=== PATIENT | female | born 1950 | race Caucasian/White ===

== ENCOUNTER → 2016-06-12 | Outpatient (CLI) | payer BC, MEDICARE ==
--- NOTE | 2016-06-12 11:03 | MM ---
Reason for exam: screening (asymptomatic). Last mammogram was performed 1 year and 2 months ago. History: Patient is postmenopausal and is nulliparous. Family history of breast cancer in mother at age 60. Benign excisional biopsy of the right breast, 1981. Took hormonal contraceptives beginning at age 21. Physical Findings: A clinical breast exam by your physician is recommended on an annual basis and results should be correlated with mammographic findings. MG Screening Mammo w CAD Bilateral CC and MLO view(s) were taken. Prior study comparison: April 10, 2015, bilateral MG 3d screening mammo w/cad. February 09, 2014, bilateral MG screening mammo w CAD. January 06, 2013, bilateral digital screening mammo w/CAD. There are scattered fibroglandular densities. Finding: There are typically benign round calcifications in both breasts, greater in the right breast. There is no discrete abnormality. ASSESSMENT: Benign, BI-RAD 2 RECOMMENDATION: Routine screening mammogram of both breasts in 1 year.
== END | disposition home or self-care (01) ==
LOC: RADMAMWWP 07:05
PROVIDERS: ATTEND Family Medicine
DX: Z12.31 Encounter for screening mammogram for malignant neoplasm of breast (principal)

== ENCOUNTER → 2018-02-25 | Outpatient (CLI) | payer MEDICARE, BC ==
--- NOTE | 2018-02-25 11:55 | MM ---
Reason for exam: additional evaluation requested from prior study. Last mammogram was performed 1 year and 8 months ago. History: Patient is postmenopausal and is nulliparous. Family history of breast cancer in mother at age 60. Benign excisional biopsy of the right breast, 1981. Took hormonal contraceptives beginning at age 21. Physical Findings: Nurse did not find any significant physical abnormalities on exam. MG 3D Diag Mammo W/Cad PARUL Bilateral CC and MLO view(s) were taken. Prior study comparison: June 12, 2016, bilateral MG screening mammo w CAD. April 10, 2015, bilateral MG 3d screening mammo w/cad. There are scattered fibroglandular densities. Dense tissues focally behind the right nipple, unchanged. No significant new findings when compared with previous films. These results were verbally communicated with the patient and result sheet given to the patient on 02/25/18. ASSESSMENT: Negative, BI-RAD 1 RECOMMENDATION: Routine screening mammogram of both breasts in 1 year.
== END | disposition home or self-care (01) ==
LOC: RADMAMWWP 08:05
PROVIDERS: ATTEND Family Medicine
DX: R92.2 Inconclusive mammogram (principal)
CPT/HCPCS: 77066; G0279; 77062

== ENCOUNTER → 2019-04-14 | Outpatient (CLI) | payer BC, MEDICARE ==
--- NOTE | 2019-04-14 10:01 | US ---
EXAMINATION TYPE: US transvaginal DATE OF EXAM: 04/14/2019 COMPARISON: NONE CLINICAL HISTORY: R10.2 Pelvic Pain. Pain total hysterectomy. TECHNIQUE: Transvaginal EXAM MEASUREMENTS: Uterus: Surgically absent Endometrial Stripe: Surgically absent Right Ovary: Surgically absent Left Ovary: Surgically absent 1. Uterus: Surgically absent 2. Endometrium: Surgically absent 3. Right Ovary: Surgically absent 4. Left Ovary: Surgically absent 5. Bilateral Adnexa: wnl 6. Posterior cul-de-sac: wnl No evident mass, no free fluid evident. IMPRESSION: Postop changes, no discrete abnormality.
== END | disposition home or self-care (01) ==
LOC: RADUSWWP 07:20
PROVIDERS: ATTEND Family Medicine
DX: R10.2 Pelvic and perineal pain (principal); Z98.890 Other specified postprocedural states
CPT/HCPCS: 76830; 76857

== ENCOUNTER → 2019-04-21 | Day surgery (SDC) | payer BC, MEDICARE ==
[2019-04-20 10:26] VITALS: BMI 23.8
[~2019-04-21] MED LIST: GLUCAGON 1 MG/ML VIAL ONE; LACTATED RINGERS 1,000 ML IV SCH; PROPOFOL 10 MG/ML 20 ML VIAL IV ONE
[2019-04-21 07:16] VITALS: TEMP 97.2
--- NOTE | 2019-04-21 07:55 | P.GSHP ---
History of Present Illness H&P Date: 04/21/19 Chief Complaint: Screening colonoscopy This a 68-year-old female who presents today for screening colonoscopy. Patient denies any significant GI complaints. Past Medical History Past Medical History: Osteoarthritis (OA) Additional Past Medical History / Comment(s): hx. colon polyps, hx. elevated liver enzymes History of Any Multi-Drug Resistant Organisms: None Reported Past Surgical History: Hysterectomy Additional Past Surgical History / Comment(s): pain procedures, colonoscopy Past Anesthesia/Blood Transfusion Reactions: No Reported Reaction Smoking Status: Former smoker Medications and Allergies Home Medications Medication Instructions Recorded Confirmed Type Calcium Carbonate [Calcium] 600 mg PO DAILY 04/20/19 04/21/19 History Cholecalciferol [Vitamin D3 (25 1,000 unit PO DAILY 04/20/19 04/21/19 History Mcg = 1000 Iu)] Cinnamon Bark [Cinnamon] 500 mg PO DAILY 04/20/19 04/21/19 History Lactobacillus Acidophilus 1 each PO DAILY 04/20/19 04/21/19 History [Acidophilus] Meloxicam [Mobic] 7.5 mg PO DAILY 04/20/19 04/21/19 History Allergies Allergy/AdvReac Type Severity Reaction Status Date / Time No Known Allergies Allergy Verified 04/20/19 09:51 Surgical - Exam Vital Signs Temp Pulse Resp BP Pulse Ox 97.2 F L 64 16 127/75 98 04/21/19 07:14 04/21/19 07:14 04/21/19 07:14 04/21/19 07:14 04/21/19 07:14 - General well developed, well nourished, no distress - Eyes PERRL - ENT normal pinna - Neck no masses - Respiratory normal expansion - Cardiovascular Rhythm: regular - Abdomen Abdomen: soft, non tender Assessment and Plan Assessment: We'll perform screening colonoscopy.
[2019-04-21 08:14] VITALS: RESP 17
[2019-04-21 08:22] VITALS: BP 110/65; PULSE 57
--- NOTE | 2019-04-21 10:27 | P.OP ---
Date of Procedure: 04/21/19 Preoperative Diagnosis: Screening colonoscopy Postoperative Diagnosis: Diverticulosis Procedure(s) Performed: Colonoscopy Anesthesia: MAC Surgeon: Martell Gerardo Pathology: none sent Condition: stable Disposition: PACU Description of Procedure: The patient's placed on the endoscopy table lateral position. He received IV sedation. Digital rectal exam was performed which revealed a few external hemorrhage. The flexible coloscopy was then placed patient anus passed throughout the entire colon. The ileocecal valve was utilized. The cecum, ascending and transverse colon appeared normal. The descending sigmoid colon there is mild diverticular changes. Scope was then brought back the rectum this appeared normal. Scope was withdrawn for patient.
== END ==
LOC: ORWHC2ENDO 06:31
PROVIDERS: ATTEND Surgery
DX: Z12.11 Encounter for screening for malignant neoplasm of colon (principal); K57.30 Diverticulosis of large intestine without perforation or abscess without bleeding; Z86.010 Personal history of colon polyps; M19.90 Unspecified osteoarthritis, unspecified site; Z90.710 Acquired absence of both cervix and uterus; Z87.891 Personal history of nicotine dependence; Z79.1 Long term (current) use of non-steroidal anti-inflammatories (NSAID); Z79.899 Other long term (current) drug therapy
CPT/HCPCS: J1610; J2704; G0105

== ENCOUNTER → 2019-05-10 | Outpatient (CLI) | payer MEDICARE, BC ==
--- NOTE | 2019-05-10 16:23 | BD ---
EXAMINATION TYPE: Axial Bone Density DATE OF EXAM: 05/10/2019 COMPARISON: 05.08.2015 CLINICAL HISTORY: 68 YR OLD FEMALE.....ICD-10 CODE: Z78.0 POST MENOPAUSAL Height: 65 Weight: 144 FRAX RISK QUESTIONS: Family History (Parent hip fracture): NO FX History of Fracture in Adulthood: YES 5. Chronic liver disease: SLIGHTLY INCREASED IN ENZYMES RISK FACTORS HISTORY OF: History of Wrist Fracture: LT WRIST OVER AGE 50 YRS OLD Family History of Osteoporosis: YES, HER MOTHER AND SISTER, NO HIP FXs Postmenopausal woman: YES, AT AGE 48 YRS OLD Take estrogen and/or progesterone medications: BCP FOR OVER 20 YRS Hyperparathyroidism: NO Adrenal Insufficiency: NO MEDICATIONS: Additional Medications: MELOXICAM, CALCIUM, REFLUX MEDS, VIT D Additional History: OSTEOARTHRITIS, REFLUX ON AND OFF EXAM MEASUREMENTS: Bone mineral densitometry was performed using the [employer]. Bone mineral density as measured about the Lumbar spine is: ----- L1-L4(G/cm2): 1.595 T Score Values are as follows: ----- L1: 2.3 ----- L2: 2.8 ----- L3: 3.8 ----- L4: 4.6 ----- L1-L4: 3.5 Bone mineral density has: Increased 10.2% since study of: 05.08.2015 Bone mineral density about the R hip (g/cm2): 1.049 Bone mineral density about the L hip (g/cm2): 0.994 T Score values are as follows: -----R Neck: 0.4 -----L Neck: -0.1 -----R Total: 0.3 -----L Total: -0.1 Bone mineral density has: Increased 2.8% since study of: 05.08.2015 FRAX%s: THERE IS A 11.4% CHANCE FOR A MAJOR OSTEOPOROTIC FX AND A 0.5% FOR HIP.....PROBABILITY FOR FX IN 10 YRS TIME IMPRESSION: Normal (Values between +1 and -1 indicate normal bone mass). Consider repeating this study in 5 year s or sooner if there is some new clinical indication. NOTE: T-SCORE=SD OF THE YOUNG ADULT MEAN.
--- NOTE | 2019-05-12 10:10 | MM ---
Reason for exam: screening (asymptomatic). Last mammogram was performed 1 year and 2 months ago. History: Patient is postmenopausal and is nulliparous. Family history of breast cancer in mother at age 60. Benign excisional biopsy of the right breast, 1981. Took hormonal contraceptives beginning at age 21. Physical Findings: A clinical breast exam by your physician is recommended on an annual basis and results should be correlated with mammographic findings. MG 3D Screening Mammo W/Cad Bilateral CC and MLO view(s) were taken. Prior study comparison: February 25, 2018, bilateral MG 3d diag mammo w/cad PARUL. June 12, 2016, bilateral MG screening mammo w CAD. There are scattered fibroglandular densities. There is chronic nodularity in the right breast subareolar region. No significant changes when compared with prior studies. ASSESSMENT: Negative, BI-RAD 1 RECOMMENDATION: Routine screening mammogram of both breasts in 1 year.
== END | disposition home or self-care (01) ==
LOC: RADMAMWWP 07:12
PROVIDERS: ATTEND Family Medicine
DX: Z12.31 Encounter for screening mammogram for malignant neoplasm of breast (principal); Z78.0 Asymptomatic menopausal state
CPT/HCPCS: 77063; 77067; 77080

== ENCOUNTER → 2020-05-22 | Outpatient (CLI) | payer MEDICARE ==
--- NOTE | 2020-05-22 14:12 | MR ---
EXAMINATION TYPE: MR cspine/lspine wo con DATE OF EXAM: 05/22/2020 COMPARISON: None HISTORY: Tingling in left arm, and tingling down both legs for about 10 months. TECHNIQUE: Multiplanar, multisequence imaging of the cervical and lumbar spine is performed without I V contrast. FINDINGS: Cervical spine MRI: Sagittal images of the cervical spine show vertebral body heights and alignment t o appear satisfactory. The intervertebral discs demonstrate some loss of height and signal at C4-5, C 6-7, there is spondylosis with some endplate discogenic marrow signal change. T2 bright focus is not ed at the left thyroid gland which is incompletely evaluated. C4-5 show some uncovertebral joint hypertrophy and facet arthropathy resulting foraminal encroachment left greater than right, posterior extension endplate disc complex causes mild anterior mass effect on the thecal sac but no significant central stenosis. C5-6: Left-sided foraminal encroachment is present, posterior extension endplate disc complex shows o nly minimal anterior mass effect on the thecal sac. C6-7: Posterior extension endplate disc complex results in some mild canal stenosis centrally, some l eft-sided greater than right foraminal encroachment is present due to uncovertebral joint hypertrophy . Remaining levels are unremarkable. IMPRESSION: Degenerative disc disease as described Lumbar MRI: Lumbar vertebral bodies show preserved height, and alignment is remarkable for anterolisthesis grade 1 at L4-5, no definite spondylolysis. There is mild multilevel spondylosis with endplate discogenic m arrow signal change. Loss of disc height signal is present at L5-S1, some increased signal at the pos terior aspect of the disc likely due to some calcification. Loss of disc height signal also present L 4-5, L3-4, L2-3 and L1-2. The conus is at T12-L1 and is unremarkable. T2 bright, T1 low signal focus is present posterior lateral to the aorta on the left, axial image 23 which is indeterminate but may represent a prominent node L5-S1: No evident significant stenosis, the re is marked facet arthropathy change. Minimal posterior disc bulge causes slight anterior mass effec t on the thecal sac, circumferential extension of endplate disc complex may encroach somewhat on the foramina. L4-5: Posterior disc bulge causes anterior mass effect on the thecal sac. Facet arthropathy with hype rtrophy ligamentum flavum causes posterior lateral mass effect on the thecal sac and encroaches on th e lateral recess bilaterally with some reduction in the transverse diameter of the spinal canal, circ umferential extension of disc material contributes with the listhesis to cause some foraminal encroac hment greater on the right than on the left. No significant central stenosis. L3-4: Posterior disc bulge causes mild anterior mass effect on the thecal sac. Facet arthropathy with hypertrophy of ligamentum flavum results in a trefoil appearance of the thecal sac. Circumferential extension of disc material contributes to encroach somewhat on the foramen on the right greater than left. L2-3: Spinal stenosis is moderate to severe at this level, circumferential posterior disc bulge cause s anterior mass effect on the thecal sac, facet arthropathy with hypertrophy ligamentum flavum causes posterior lateral mass effect on the thecal sac. No definite foraminal encroachment L1-2: Posterior broad-based disc bulge is present, there is a central disc protrusion causing anterio r mass effect on the thecal sac but no significant central stenosis. No significant foraminal encroac hment. IMPRESSION: Multilevel facet arthropathy, degenerative disc disease with spinal stenosis greatest at L2-3. Additional findings above with possible node at the level of the aorta as described.
== END ==
LOC: RADMRIMAIN 09:13
PROVIDERS: ATTEND Orthopaedic Surgery
DX: M50.321 Other cervical disc degeneration at C4-C5 level (principal); M47.812 Spondylosis without myelopathy or radiculopathy, cervical region
CPT/HCPCS: 72141; 72148

== ENCOUNTER → 2020-05-31 | Outpatient (CLI) | payer MEDICARE ==
--- NOTE | 2020-06-01 14:43 | MM ---
Reason for exam: screening (asymptomatic). Last mammogram was performed 1 year and 1 month ago. History: Patient is postmenopausal and is nulliparous. Family history of breast cancer in mother at age 60. Benign excisional biopsy of the right breast, 1981. Took hormonal contraceptives beginning at age 21. Physical Findings: A clinical breast exam by your physician is recommended on an annual basis and results should be correlated with mammographic findings. MG 3D Screening Mammo W/Cad Bilateral CC and MLO view(s) were taken. Prior study comparison: May 10, 2019, bilateral MG 3d screening mammo w/cad. February 25, 2018, bilateral MG 3d diag mammo w/cad PARUL. There are scattered fibroglandular densities. There are benign appearing round calcifications in the right breast. Asymmetric breast tissue in the right breast, stable. There is no discrete abnormality. ASSESSMENT: Benign, BI-RAD 2 RECOMMENDATION: Routine screening mammogram of both breasts in 1 year.
== END | disposition home or self-care (01) ==
LOC: RADMAMWWP 06:59
PROVIDERS: ATTEND Family Medicine
DX: Z12.31 Encounter for screening mammogram for malignant neoplasm of breast (principal); Z80.3 Family history of malignant neoplasm of breast
CPT/HCPCS: 77063; 77067

== ENCOUNTER 2020-07-17 07:24 | Day surgery (SDC) | payer MEDICARE ==
[2020-07-13 12:46] VITALS: BMI 23.3
[~2020-07-17 07:24] MED LIST changes: -GLUCAGON 1 MG/ML VIAL ONE; -PROPOFOL 10 MG/ML 20 ML VIAL IV ONE
[2020-07-17 07:42] VITALS: TEMP 97.7
--- NOTE | 2020-07-17 07:49 | P.PCN ---
Date of Procedure: 07/17/20 Description of Procedure: PREOPERATIVE DIAGNOSIS: Lumbar radiculopathy POSTOPERATIVE DIAGNOSIS: Lumbar radiculopathy PROCEDURE 1. Transforaminal epidural steroid injection under fluoroscopic guidance left L2-L3 2. Lumbar epidurogram IMAGING Fluoroscopy was used, images where saved to the medical record ANESTHESIA: Local with 1% lidocaine 5 ml ; IV conscious sedation per nurse anesthesia PROCEDURE DESCRIPTION / TECHNIQUE: The patient was seen and identified in the preoperative area. Risks, benefits, complications, and alternatives were discussed with the patient. The patient agreed to proceed with the procedure and signed the consent, vital signs were stable prior to the procedure. Patient was taken to the OR and time out was completed. The patient was placed in the prone position on procedure table and a pillow was placed under the abdomen to reduce lumbar lordosis. The lumbosacral area was prepped and draped in the usual sterile fashion. Vital signs were closely monitored during the procedure. Conscious sedation was used. Using oblique fluoroscopy, the chin of the "Thien dog" at the pedicle and the skin and deeper tissues just below was localized with 1% lidocaine. Subsequently, a 22-gauge 3.5-inch spinal needle was advanced under a tunneled view fluoroscopic guidance just underneath the chin of the "Thien dog". Under lateral fluoroscopy, the needle was then advanced to the posterior border interforaminal space. After negative aspiration of CSF and blood and with no paresthesias, 1 mL of Omnipaque-240 contrast dye was injected excellent epidurogram. Subsequently, a solution totalling 2ml of dexamethasone and PFNS was injected after negative aspiration (total of 10mg of dexamethasone was used). The needle was removed intact. COMPLICATIONS: None DISPOSITION: The patient was placed in a supine position and transferred to the recovery area in a stable condition for observation. There was no evidence of lower extremity motor or sensory deficit after the procedure. Patient was discharged from the recovery room after meeting discharge criteria. Home discharge instructions were given to the patient by the staff. The patient was reexamined prior to discharge. Follow up as directed.
[2020-07-17] MEDS ORDERED: DEXAMETHASONE SOD PHOSPHATE 10 MG/ML 1 ML VIAL ONE (07:52)
[2020-07-17] MEDS ORDERED: MIDAZOLAM 2 MG/2 ML VIAL ONE (07:52)
[2020-07-17] MEDS ORDERED: IOPAMIDOL M200 10 ML VIAL ONE (07:52)
[2020-07-17] MEDS ORDERED: fentaNYL (PF) 50 MCG/ML 2 ML AMP ONE (07:52)
[2020-07-17] MEDS ORDERED: IV FLUID CONTINUATION 1,000 ML IV ONE (08:04)
[2020-07-17 08:08] VITALS: RESP 18
[2020-07-17 08:22] VITALS: BP 127/78; PULSE 67
--- NOTE | 2020-07-17 09:08 | FL ---
EXAMINATION TYPE: FL guided pain mgmt statistic DATE OF EXAM: 07/17/2020 CLINICAL HISTORY: Low back pain. TECHNIQUE: Fluoroscopy. COMPARISON: None. FINDINGS: Fluoroscopic guidance was provided during pain relief procedure performed by Dr. Lundy . A total of 4 seconds of fluoroscopic time was utilized during the procedure and 1 spot images are a cquired. Single image acquired shows needle localization in the lumbar spine off the midline. IMPRESSION: As Above.
== END 2020-07-17 08:37 | disposition home or self-care (01) ==
LOC: ORPAIN 07:24
PROVIDERS: ATTEND Hospitalist
DX: M54.16 Radiculopathy, lumbar region (principal)
CPT/HCPCS: 64483; J2250; J1100; J3010; Q9966

== ENCOUNTER → 2020-08-06 | Outpatient (CLI) | payer MEDICARE ==
[2020-08-06 08:16] VITALS: BP 114/75; PULSE 65; RESP 16; TEMP 98
--- NOTE | 2020-08-06 08:27 | P.PN ---
Subjective Progress Note Date: 08/06/20 This is a follow-up visit for this 69 years old female with a history of chronic and severe low back pain with radiation to the lower extremity, mainly to the left side, she is diagnosed with lumbar radiculopathy ,and lumbar spinal stenosis ,lumbar degenerative disc disease, and lumbar spondylosis with lumbar facet arthropathy, recently we did left-sided transforaminal epidural steroid injection L2-3 levels she reported that she got some benefit, she continued to have severe pain, denies any fever or night sweats she denies any change in bowel movement or urination, no motor or sensory deficit Objective - Vital Signs Vital signs: Vital Signs Temp 98.0 F 08/06/20 08:13 Pulse 65 08/06/20 08:13 Resp 16 08/06/20 08:13 BP 114/75 08/06/20 08:13 Pulse Ox 99 08/06/20 08:13 - Exam Physical Examinations : -Constitutiona : Cooperative , not in acute distress . -HEENT : nech : supple , no Lymphadenopathy , normal thyroid size . : eyes : no ptosis , no icterus, no photophobia . - neurologic : Cranial nerve II to XII intact , no focal neurological deffecit . -psychatric : alert , oriented X 3 , appropriate affect , intact judgment and insight . -Lymphatic : no Lymphadenopathy . - musculoskeltal : Lumber spine moter stegnth lower extremities ,thigh and legs 5/5 Right side , 5/5 Left side deep tendon reflexes : normal Knee Jerk , normal ankle Jerk lumber facet Loading Test =positive Right , positive Left Lower of the lumbar spine reviewed= lumbar degenerative disc disease, foraminal stenosis, lumbar spondylosis Assessment and Plan Plan: Assessment and plan=-lumbar radiculopathy Lumbar degenerative disc disease. Lumbar foraminal stenosis. Lumbar spondylosis. she had some benefit after left-sided transforaminal epidural steroid injection at L2-3 And she could benefit from repeat injection at left-sided transforaminal epidural steroid injection at L2-3 levels. - PQRS measures = - Patient's medications are documented in the chart. -Tobacco use is negative and counseling.Given. -Patient's has not received pneumococcal vaccine. -Advanced care planning discussed, patient not eligible. -Opiate contract not signed. -Pain positive and follow-up visit/procedure is scheduled. -Patient's blood pressure measured [ 114/75 ] , and documented in the record ,and patient will follow up with the primary care. -Patient's weight was measured and body mass index [ 22.8 ] within the normal limits and counseling was done. and patient instructed to follow-up with the primary care physician. -Patient was not identified as an unhealthy alcohol user Time with Patient: Less than 30
== END ==
LOC: PNWHC3 07:54
PROVIDERS: ATTEND Specialist
DX: M47.26 Other spondylosis with radiculopathy, lumbar region (principal); M48.061 Spinal stenosis, lumbar region without neurogenic claudication; M51.16 Intervertebral disc disorders with radiculopathy, lumbar region; Z87.891 Personal history of nicotine dependence
CPT/HCPCS: 99211

== ENCOUNTER 2020-08-28 07:03 | Day surgery (SDC) | payer MEDICARE ==
[2020-08-27 10:20] VITALS: BMI 23.3
[2020-08-28 07:31] VITALS: RESP 16; TEMP 97.5
[2020-08-28] MEDS ORDERED: MIDAZOLAM 2 MG/2 ML VIAL ONE (08:13)
[2020-08-28] MEDS ORDERED: fentaNYL (PF) 50 MCG/ML 2 ML AMP ONE (08:13)
[2020-08-28] MEDS ORDERED: IOPAMIDOL M200 10 ML VIAL ONE (08:13)
[2020-08-28] MEDS ORDERED: methylPREDNISolone ACETATE 40 MG/ML 1 ML VIAL ONE (08:13)
--- NOTE | 2020-08-28 08:30 | P.PCN ---
Date of Procedure: 08/28/20 Procedure(s) Performed: PREOPERATIVE DIAGNOSIS:1- Lumbar radiculopathy . 2-lumbar degenerative disc disease POSTOPERATIVE DIAGNOSIS: Same as preoperative diagnoses. PROCEDURE 1. Transforaminal epidural steroid injection under fluoroscopic guidance at left L2-3 level. (Fluoroscopy images stored on file in the radiology Department ) 2. Lumbar epidurogram . ANESTHESIA: Local with 1% lidocaine 3 ml , moderate sedation with intravenous Versed 2 mg and fentanyle 50 micrograms. EBL: Minimal PROCEDURE INDICATION: The patient with low back pain and radiculopathy symptoms unresponsive to conservative treatment. PROCEDURE DESCRIPTION / TECHNIQUE: The patient was seen and identified in the preoperative area. Risks, benefits, complications, and alternatives were discussed with the patient. The patient agreed to proceed with the procedure and signed the consent. IV was started, and vital signs were stable. Patient was taken to the OR and time out was completed. The patient was placed in the prone position on procedure table and a pillow was placed under the abdomen to reduce lumbar lordosis. The lumbosacral area was prepped and draped in the usual sterile fashion. Critical pause was taken. Vital signs were closely monitored during the procedure. Conscious sedation was used during the procedure to decrease patient s anxiety. Using oblique fluoroscopy, the chin of the ``Thien dog at left L2-3 level was identified, and the skin and deeper tissues just below was localized with 1% lidocaine. Subsequently, a 22-gauge 3.5-inch spinal needle was advanced under a tunneled view fluoroscopic guidance just underneath the chin of the ``Thien dog at the left L2-3 Under lateral fluoroscopy, the needle was then advanced to the posterior border of the interforaminal space. After negative aspiration of CSF and blood and with no paresthesias, 1 mL Isovue 200 contrast dye was injected excellent epidurogram and outlining of the nerve root Subsequently, 3 mL of block solution containing 80 mg Depo-Medrol and 2 mL of 0.9% normal saline PF was injected. Needle was removed . At the end of the procedure, skin was cleansed, and bandages were applied. COMPLICATIONS:none DISPOSITION / PLANS: The patient was placed in a supine position and transferred to the recovery area in a stable condition for observation. There was no evidence of lower extremity motor or sensory deficit after the procedure. Patient was discharged from the recovery room after meeting discharge criteria. Home discharge instructions were given to the patient by the staff. The patient was reexamined prior to discharge.
[2020-08-28] MEDS ORDERED: LACTATED RINGERS 600 ML IV ONE (08:36)
[2020-08-28 09:01] VITALS: BP 115/69; PULSE 48
--- NOTE | 2020-08-28 09:39 | FL ---
Fluoroscopy INDICATION: Pain FINDINGS: Fluoroscopy time: 6 seconds. Images obtained: 1. IMPRESSIONS: 1. Documentation of fluoroscopy.
== END 2020-08-28 09:16 | disposition home or self-care (01) ==
LOC: ORPAIN 07:03
PROVIDERS: ATTEND Specialist
DX: M51.16 Intervertebral disc disorders with radiculopathy, lumbar region (principal)
CPT/HCPCS: 64483; J2250; J1030; J3010; Q9966; 99152

== ENCOUNTER 2020-10-09 06:09 | Day surgery (SDC) | payer MEDICARE ==
[2020-10-08 10:56] VITALS: BMI 23.3
[2020-10-09 06:45] VITALS: TEMP 97.2
[2020-10-09] MEDS ORDERED: LACTATED RINGERS 1,000 ML IV ONE (06:47)
[2020-10-09] MEDS ORDERED: IOPAMIDOL M200 10 ML VIAL ONE (07:05)
[2020-10-09] MEDS ORDERED: fentaNYL (PF) 50 MCG/ML 2 ML AMP ONE (07:05)
[2020-10-09] MEDS ORDERED: MIDAZOLAM 2 MG/2 ML VIAL ONE (07:05)
[2020-10-09] MEDS ORDERED: DEXAMETHASONE SOD PHOSPHATE 10 MG/ML 1 ML VIAL ONE (07:05)
[2020-10-09] MEDS ORDERED: LACTATED RINGERS 1,000 ML IV SCH (07:15)
[2020-10-09] MEDS ORDERED: IV FLUID CONTINUATION 1,000 ML IV ONE ×2 (07:26)
[2020-10-09 07:30] VITALS: RESP 18
[2020-10-09 07:44] VITALS: BP 102/65; PULSE 60
--- NOTE | 2020-10-09 07:56 | P.PCN ---
Description of Procedure: PREOPERATIVE DIAGNOSIS: Lumbar radiculopathy, lumbar spinal stenosis POSTOPERATIVE DIAGNOSIS: Lumbar radiculopathy, Lumbar spinal stenosis PROCEDURE 1. Transforaminal epidural steroid injection under fluoroscopic guidance left L2-L3 2. Lumbar epidurogram IMAGING Fluoroscopy was used, images where saved to the medical record ANESTHESIA: Local with 1% lidocaine 5 ml ; IV conscious sedation per RN. PROCEDURE DESCRIPTION / TECHNIQUE: The patient was seen and identified in the preoperative area. Risks, benefits, complications, and alternatives were discussed with the patient. The patient agreed to proceed with the procedure and signed the consent, vital signs were stable prior to the procedure. Patient was taken to the OR and time out was completed. The patient was placed in the prone position on procedure table and a pillow was placed under the abdomen to reduce lumbar lordosis. The lumbosacral area was prepped and draped in the usual sterile fashion. Vital signs were closely monitored during the procedure. Conscious sedation was used. Using oblique fluoroscopy, the chin of the "Thien dog" at the pedicle and the skin and deeper tissues just below was localized with 1% lidocaine. Subsequently, a 22-gauge 3.5-inch spinal needle was advanced under a tunneled view fluoroscopic guidance just underneath the chin of the "Thien dog". Under lateral fluoroscopy, the needle was then advanced to the posterior border interforaminal space. After negative aspiration of CSF and blood and with no paresthesias, 1 mL of Omnipaque-240 contrast dye was injected excellent epidurogram. Subsequently, a solution totaling 4ml of PFNS and 1ml 10mg/1ml dexamethasone PF was injected after negative aspiration (total of 10mg of dexamethasone was used). The needle was removed intact. COMPLICATIONS: None DISPOSITION: The patient was placed in a supine position and transferred to the recovery area in a stable condition for observation. There was no evidence of lower extremity motor or sensory deficit after the procedure. Patient was discharged from the recovery room after meeting discharge criteria. Home discharge instructions were given to the patient by the staff. The patient was reexamined prior to discharge. Follow up as directed.
--- NOTE | 2020-10-09 08:19 | FL ---
Fluoroscopy HISTORY: Pain 15 seconds fluoroscopy time supplied to the referring clinician. 2 intraoperative C-arm images docum ent the procedure. See dictated report from anesthesia.
== END 2020-10-09 08:15 | disposition home or self-care (01) ==
LOC: ORPAIN 06:09
PROVIDERS: ATTEND Anesthesiology
DX: M48.061 Spinal stenosis, lumbar region without neurogenic claudication (principal); M54.16 Radiculopathy, lumbar region
CPT/HCPCS: 64483; J2250; J1100; J3010; Q9966; 62323; 99152

== ENCOUNTER → 2020-11-05 | Outpatient (CLI) | payer MEDICARE ==
[2020-11-05 08:37] VITALS: BP 131/82; PULSE 61; RESP 18; TEMP 98.4
--- NOTE | 2020-11-05 09:19 | P.PN ---
Subjective Progress Note Date: 11/05/20 This is a follow-up visit for this 70 years old female with a history of chronic and severe low back pain with radiation to the lower extremity, mainly to the left side, she is diagnosed with lumbar radiculopathy ,and lumbar spinal stenosis ,lumbar degenerative disc disease, and lumbar spondylosis with lumbar facet arthropathy, Status Post left-sided transforaminal epidural steroid injection L2-3 levels x3 , she reported that she got minimal benefit, she continued to have severe pain, denies any fever or night sweats she denies any change in bowel movement or urination, no motor or sensory deficit, tried physical therapy without any benefit, she tried NSAID (ALLEVE without any benefit ), She tried oral steroids without any benefit Physical Examinations : -Constitutiona : Cooperative , not in acute distress . -HEENT : nech : supple , no Lymphadenopathy , normal thyroid size . : eyes : no ptosis , no icterus, no photophobia . - neurologic : Cranial nerve II to XII intact , no focal neurological deffecit . -psychatric : alert , oriented X 3 , appropriate affect , intact judgment and insight . -Lymphatic : no Lymphadenopathy . - musculoskeltal : Lumber spine moter stegnth lower extremities ,thigh and legs 5/5 Right side , 5/5 Left side deep tendon reflexes : normal Knee Jerk , normal ankle Jerk lumber facet Loading Test =positive R ight , positive Left Lower of the lumbar spine reviewed= lumbar degenerative disc disease, foraminal stenosis, lumbar spondylosis Assessment and plan=-lumbar radiculopathy Lumbar degenerative disc disease. Lumbar foraminal stenosis. Lumbar spondylosis. she had minimal benefit after left-sided transforaminal epidural steroid injection at L2-3 x3 she will follow-up with Dr. Rogel spine surgeon for evaluation - PQRS measures = - Patient's medications are documented in the chart. -Tobacco use is negative and counseling.Given. -Patient's has not received pneumococcal vaccine. -Advanced care planning discussed, patient not eligible. -Opiate contract not signed. -Pain positive and follow-up visit/procedure is scheduled. -Patient's blood pressure measured [ 131/82 ] , and documented in the record ,and patient will follow up with the primary care. -Patient's weight was measured and body mass index [ 23.4 ] within the normal limits and counseling was done. and patient instructed to follow-up with the primary care physician. -Patient was not identified as an unhealthy alcohol user Objective - Vital Signs Vital signs: Vital Signs Temp 98.4 F 11/05/20 08:33 Pulse 61 11/05/20 08:33 Resp 18 11/05/20 08:33 BP 131/82 11/05/20 08:33 Pulse Ox 97 11/05/20 08:33
== END ==
LOC: PNWHC3 08:17
PROVIDERS: ATTEND Specialist
DX: M51.16 Intervertebral disc disorders with radiculopathy, lumbar region (principal); M47.26 Other spondylosis with radiculopathy, lumbar region; M48.061 Spinal stenosis, lumbar region without neurogenic claudication
CPT/HCPCS: 99211

== ENCOUNTER → 2021-06-06 | Outpatient (CLI) | payer MEDICARE ==
--- NOTE | 2021-06-06 10:40 | MM ---
Reason for exam: screening (asymptomatic). Last mammogram was performed 1 year ago. History: Patient is postmenopausal and is nulliparous. Family history of breast cancer in mother at age 60. Benign excisional biopsy of the right breast, 1981. Took hormonal contraceptives beginning at age 21. Physical Findings: A clinical breast exam by your physician is recommended on an annual basis and results should be correlated with mammographic findings. MG 3D Screening Mammo W/Cad Bilateral CC and MLO view(s) were taken. Prior study comparison: May 31, 2020, bilateral MG 3d screening mammo w/cad. May 10, 2019, bilateral MG 3d screening mammo w/cad. There are scattered fibroglandular densities. There are benign appearing round calcifications bilaterally. There is no discrete abnormality. ASSESSMENT: Benign, BI-RAD 2 RECOMMENDATION: Routine screening mammogram of both breasts in 1 year.
== END | disposition home or self-care (01) ==
LOC: RADMAMWWP 07:39
PROVIDERS: ATTEND Family Medicine
DX: Z12.31 Encounter for screening mammogram for malignant neoplasm of breast (principal); Z80.3 Family history of malignant neoplasm of breast; Z78.0 Asymptomatic menopausal state
CPT/HCPCS: 77063; 77067

== ENCOUNTER → 2022-06-12 | Outpatient (CLI) | payer MEDICARE ==
--- NOTE | 2022-06-13 08:54 | MM ---
Reason for Exam: Screening (asymptomatic). Last screening mammogram was performed 12 month(s) ago. Patient History: Menarche at age 14. Patient has no children. Left ovary removed at age 48. Right ovary removed at age 48. Hysterectomy at age 48. Postmenopausal. Hormonal Contraceptives, from age 21 until age 48. 1982, Benign Excisional Biopsy on the right side. Mother had breast cancer, age 60. Risk Values: Luma 5 year model risk: 3.7%. NCI Lifetime model risk: 10.0%. Prior Study Comparison: 05/10/2019 Bilateral Screening Mammogram, [facility]. 05/31/2020 Bilateral Screening Mammogram, [facility]. 06/06/2021 Bilateral Screening Mammogram, [facility]. Tissue Density: There are scattered fibroglandular densities. Findings: Analyzed By CAD. There is no suspicious group of microcalcifications or new suspicious mass in either breast. Chronic nodularity within both breasts. Benign-appearing round calcifications within both breasts. Overall Assessment: Benign, BI-RAD 2 Management: Screening Mammogram of both breasts in 1 year. A clinical breast exam by your physician is recommended on an annual basis and results should be correlated with mammographic findings. Electronically signed and approved by: Gio Roblero D.O.
== END | disposition home or self-care (01) ==
LOC: RADMAMWWP 07:41
PROVIDERS: ATTEND Family Medicine
DX: Z12.31 Encounter for screening mammogram for malignant neoplasm of breast (principal); Z78.0 Asymptomatic menopausal state; Z80.3 Family history of malignant neoplasm of breast; Z98.890 Other specified postprocedural states
CPT/HCPCS: 77063; 77067

== ENCOUNTER → 2023-06-18 | Outpatient (CLI) | payer MEDICARE ==
--- NOTE | 2023-06-18 12:24 | MM ---
Reason for Exam: Screening (asymptomatic). Last screening mammogram was performed 12 month(s) ago. Patient History: Menarche at age 14. Patient has no children. Left ovary removed at age 48. Right ovary removed at age 48. Hysterectomy at age 48. Postmenopausal. Hormonal Contraceptives, from age 21 until age 48. 1982, Benign Excisional Biopsy on the right side. Mother had breast cancer, age 60. Risk Values: Luma 5 year model risk: 3.7%. NCI Lifetime model risk: 9.5%. Prior Study Comparison: 05/31/2020 Bilateral Screening Mammogram, [facility]. 06/06/2021 Bilateral Screening Mammogram, [facility]. 06/12/2022 Bilateral MG 3D screening mammo w/cad, [facility]. Tissue Density: The breasts are heterogeneously dense, which may obscure small masses. Findings: Analyzed By CAD. The pattern is symmetrical. Scattered benign appearing calcifications are within the right breast couple of benign-appearing punctate calcifications are within the left breast. Pattern is stable. No suspicious groups of microcalcifications, spiculated or lobular masses, architectural distortion or other secondary signs of malignancy are mammographically apparent. Overall Assessment: Benign, BI-RAD 2 Management: Screening Mammogram of both breasts in 1 year. A negative mammogram report should not preclude additional follow up of suspicious palpable abnormalities. Patient should continue monthly self breast exam. A clinical breast exam by your physician is recommended on an annual basis and results should be correlated with mammographic findings. Electronically signed and approved by: Elliott Holliday D.O. Radiologis
== END | disposition home or self-care (01) ==
LOC: RADMAMWWP 07:46
PROVIDERS: ATTEND Family Medicine
DX: Z12.31 Encounter for screening mammogram for malignant neoplasm of breast (principal); Z78.0 Asymptomatic menopausal state; Z80.3 Family history of malignant neoplasm of breast
CPT/HCPCS: 77063; 77067

== ENCOUNTER → 2024-06-21 | Outpatient (CLI) | payer MEDICARE ==
--- NOTE | 2024-06-21 08:16 | MM ---
Reason for Exam: Screening (asymptomatic). Last mammogram was performed 1 year(s) and 1 month(s) ago. Patient History: Menarche at age 14. Patient has no children. Left ovary removed at age 48. Right ovary removed at age 48. Hysterectomy at age 48. Postmenopausal. Hormonal Contraceptives, from age 21 until age 48. 1982, Benign Excisional Biopsy on the right side. Mother had breast cancer, age 60. Risk Values: Luma 5 year model risk: 3.7%. NCI Lifetime model risk: 9.0%. Prior Study Comparison: 06/06/2021 Bilateral Screening Mammogram, [facility]. 06/12/2022 Bilateral MG 3D screening mammo w/cad, [facility]. 06/18/2023 Bilateral MG 3D screening mammo w/cad, [facility]. Tissue Density: There are scattered areas of fibroglandular density. Findings: Analyzed By CAD. There is no suspicious group of microcalcifications or new suspicious mass in either breast. Overall Assessment: Benign, BI-RAD 2 Management: Screening Mammogram of both breasts in 1 year. . Patient should continue monthly self-breast exams. A clinical breast exam by your physician is recommended on an annual basis. This exam should not preclude additional follow-up of suspicious palpable abnormalities. Note on Luma scores and lifetime risk: 1. A Luma score greater than 3% is considered moderate risk. If this is the case, consider specialist referral to assess eligibility for a risk reducing agent. 2. If overall lifetime risk for the development of breast cancer is 20% or higher, the patient may qualify for future screening with alternating mammogram and breast MRI. [facility], , 06/21/2024 8:14 AM. Electronically signed and approved by: Baron Albarado M.D. Radiologis
--- NOTE | 2024-06-21 11:04 | BD ---
EXAMINATION TYPE: Axial Bone Density DATE OF EXAM: 06/21/2024 CLINICAL HISTORY: 73 years old Female. ICD-10 CODE: Z78.0 POST MENOPAUSAL WITHOUT HRT , Additional H istory: Height: 65 Weight: 138.7 FRAX RISK QUESTIONS: Alcohol (3 or more units per day): no Family History (Parent hip fracture): mother Glucocorticoids (More than 3mos): no (Ex: prednisone, prednisolone, methylprednisolone, dexamethasone, and hydrocortisone). History of Fracture in Adulthood: lt wrist Secondary Osteoporosis: 1. Type 1 Diabetes: no 2. Hyperthyroidism: no 3. Menopause before 45: yes 4. Malnutrition: no 5. Chronic liver disease: no Rheumatoid Arthritis: no Current Tobacco Use: no RISK FACTORS HISTORY OF: Hip Fracture (Right/Left): no Spine Fracture: no History of Wrist Fracture: lt wrist When: age 50 Surgery to Spine/Hip(right/left)/Wrist (right/left): no MEDICATIONS: Thyroid Medications: no Osteoporosis Medications: no EXAM MEASUREMENTS: Bone mineral densitometry was performed using the [employer] System. Bone mineral density as measured about the Lumbar spine is: ----- L1-L4(G/cm2): 1.465 T Score Values are as follows: ----- L1: 1.1 ----- L2: 2.1 ----- L3: 3.0 ----- L4: 3.2 ----- L1-L4: 2.4 Z Score Values are as follows: ----- L1: 2.9 ----- L2: 3.9 ----- L3: 4.8 ----- L4: 5.0 ----- L1-L4: 4.2 Bone mineral density has: decreased -8.2 % since study of: 05/10/2019 Bone mineral density about the R hip (g/cm2): 0.965 Bone mineral density about the L hip (g/cm2): 0.937 T Score values are as follows: -----R Neck: 0.1 -----L Neck: -0.3 -----R Total: -0.3 -----L Total: -0.6 Z Score values are as follows: -----R Neck: 2.0 -----L Neck: 1.6 -----R Total: 1.4 -----L Total: 1.1 Bone mineral density has: decreased -6.9 % since study of: 05/10/2019 FRAX%s: The graph provided illustrates a 11.9% chance for a major osteoporotic fx and a 1.0% chance f or the hips probability for fx in 10 years time. IMPRESSION: Normal (Values between +1 and -1 indicate normal bone mass). Consider repeating this study in 5 year s or sooner if there is some new clinical indication. NOTE: T-SCORE=SD OF THE YOUNG ADULT MEAN. [facility], , 06/21/2024 11:02 AM
== END | disposition home or self-care (01) ==
LOC: RADBDWWP 07:39
PROVIDERS: ATTEND Family Medicine
DX: Z12.31 Encounter for screening mammogram for malignant neoplasm of breast (principal); R92.323 Mammographic fibroglandular density, bilateral breasts; Z80.3 Family history of malignant neoplasm of breast; Z92.0 Personal history of contraception; Z78.0 Asymptomatic menopausal state
CPT/HCPCS: 77063; 77067; 77080